=== PATIENT | male | born 2000 | race Caucasian/White ===

== ENCOUNTER 2024-07-14 16:06 | Inpatient (IN) | payer OTHER, BC, SELFPAY ==
[2024-07-14 12:11] VITALS: BP 129/76
[2024-07-14 14:45] VITALS: BP 131/82; BMI 24.3
--- NOTE | 2024-07-14 14:52 | EDRN ---
Kaden HOUGH currently at the pts bedside
[2024-07-14 15:13] LABS: % Basophils 0.2 % (0-2); % Eosinophils 1.2 % (0-6); % Immature Granulocytes 0.2 % (0-0.5); % Lymphocytes 20.6 % (20.5-51.1); % Monocytes 8.7 % (1.7-9.3); % Neutrophils 69.1 % (42.2-75.2); Absolute Eosinophils 0.1 10^3/uL (0-0.7); Absolute Lymphocytes 2.5 10^3/uL (1.2-3.4); Absolute Monocytes 1.1 10^3/uL (0.1-0.6); Absolute Neutrophils 8.3 10^3/uL (1.4-6.5); Hematocrit 48.6 % (39.0-52.0); Hemoglobin 16.9 g/dL (13.0-18.0); Mean Corp Hgb Conc. 34.8 g/dL (33.0-37.0); Mean Corpuscular Hgb 30.6 pg (27.0-31.0); Mean Corpuscular Volume 87.9 fL (80.0-94.0); Nucleated Red Blood Cells % 0 % (-); Platelet Count 265 10^3/uL (130-400); Red Blood Cell Count 5.53 10^6/uL (4.70-6.10); White Blood Cell Count 12.1 10^3/uL (4.8-10.8)
[2024-07-14 15:20] LABS: ALT (SGPT) 22 U/L (0-50); AST (SGOT) 25 U/L (17-59); Alkaline Phosphatase 104 U/L (38-126); Blood Urea Nitrogen 15 mg/dl (9-20); Calcium 9.4 mg/dl (8.4-10.2); Carbon Dioxide 29 mmol/L (22-30); Chloride 98 mmol/L (98-107); Estimated Creatinine Clearance 97 ml/min; Glucose 98 mg/dl (70-99); Potassium 4.5 mmol/L (3.5-5.1); Sodium 138 mmol/L (135-145); Total Bilirubin 0.6 mg/dl (0.2-1.3); Total Protein 8.4 g/dl (6.3-8.2); eGFR > 60.00
[2024-07-14] MEDS: TORADOL 15 MG IV (15:21)
[2024-07-14] MEDS: VANCOCIN 540 MG IV (15:23)
--- NOTE | 2024-07-14 15:30 | ED.GENMED ---
History of Present Illness
General
Chief Complaint: Skin Problem
Time Seen by Provider: 07/14/24 13:23
History of Present Illness
History of Present Illness:
23-year-old male presents to the emergency department for evaluation of swelling and pain several days. He notes that the symptoms began after trimming his nose hair. He was started on Augmentin and Bactrim 3 days ago by his primary care physician
but reports the symptoms are worsening. He does have occasional purulent discharge from the right nare. No fevers or chills. He does have pain to the dental region as well.
Review of Systems
Review of Systems
Allergies reviewed?: Yes
All Other Systems: ROS reviewed and negative except as documented in HPI and ROS
Phy Exam
Physical Exam
Physical Exam:
GEN: Well appearing, NAD, WDWN
HEENT: Oral mucosa moist, no scleral icterus. Severe erythema and swelling to the central nasal tip and right nasal malina, pustular lesion with active discharge to the inner right nasal malina. No crepitus, no erythema extending to the maxillary face
or philtrum
Cardiac: Regular rate
Lung: No respiratory distress, no tachypnea
MSK: No gross deformity or injuries
Skin: Good color, no pallor or jaundice, no rashes
Neuro: AO x3, moves all extremities freely
Psych: Calm, cooperative
Course
Orders/Labs/Results
Orders:
Orders
07/14/24 14:53
Complete Blood Count/With Diff Urgent
Comprehensive Metabolic Panel Urgent
Wound Culture [Wound/Abscess/Other Culture] Urgent
LUCÍA Source: Face
Specimen Description: Right
Date Specimen was Collected: 07/14/24
Time Specimen was Collected: 14:47
Comment: R nasal ala, internal
07/14/24 15:01
Ketorolac [Toradol] 15 mg IV NOW STA
07/14/24 15:06
Vancomycin [Vancocin] 2,000 mg 0.9% Sodium Chloride 500 ml [Nss] 500 ml IV NOW
07/14/24 15:54
Admit/Transfer Patient As Directed
Co-Sign Provider:
Level of Care: Inpatient admission
Assign to:: Medical/Surgical
Physician / Group: Scott
Diagnosis: Cellulitis
Reason for Hospitalization: IV abx
Expected length of stay greater than two midnights?: Yes
ELOS- Estimated Length of Stay in days: 3
I certify the patient meets the requirements for IP care: Yes
07/14/24 15:55
PRN Pain Medication Management As Directed
May give lesser potent ordered pain med per pt: Yes
preference::
Protocol:: Medication orders for pain may be administered in a
manner that supports deferring to patient preference
when the pt is:
- Requesting an ordered lesser potent pain medication.
Least to most potent pain medications are defined
as: acetaminophen < NSAID < tramadol < opioids
(morphine, oxycodone, hydromorphone).
- Requesting a lesser dose of the same medication IF
ORDERED.
- Requesting a less intrusive route of administration
if both routes are prescribed by the provider (PO <
IV).
07/14/24 15:57
Code Status As Directed
Resuscitation Status: Full Code
07/14/24 17:03
HYDROmorphone [Dilaudid] 0.25 mg IV Q3HPRN PRN
Abnormal Lab Results
07/14/24
14:53
WBC 12.1 H 10^3/uL
(4.8-10.8)
Absolute Neuts (auto) 8.3 H 10^3/uL
(1.4-6.5)
Absolute Monos (auto) 1.1 H 10^3/uL
(0.1-0.6)
Total Protein 8.4 H g/dl
(6.3-8.2)
07/14/24 14:53
07/14/24 14:53
Vital Signs
Initial and Last Documented VS:
Initial Vital Signs
Temp Pulse Resp BP Pulse Ox
98.4 F 62 18 129/76 100
07/14/24 12:11 07/14/24 12:11 07/14/24 12:11 07/14/24 12:11 07/14/24 12:11
Last Documented Vital Signs
Temp Pulse Resp BP Pulse Ox
97.6 F 86 20 115/72 99
07/14/24 18:23 07/14/24 18:23 07/14/24 18:23 07/14/24 18:23 07/14/24 18:23
MDM/Problems Addressed
MDM/Problems Addressed:
Due to failure of outpatient therapy the patient would be admitted for IV antibiotics, culture sent from the discharge in the right nasal malina
*Critical Care Note
Total Time (30-74mins, 75-104mins- exclusive of procedures): Not Applicable
ED Attending Note
-
Portions of this chart may have been created with voice recognition software.� Occasional wrong word or��sound alike� substitutions may have occurred due to the inherent limitations of voice recognition software.
Discharge Plan
Departure
Patient Disposition: Admit
Date of Disposition: 07/14/24
Time of Disposition: 15:32
Admit to: Med/Surg
Presentation/result/management discussed w/ accepting MD/DO: Hospitalist
Discharge Problem:
Nasal vestibulitis, Failure of outpatient treatment
Interventions
Interventions:
*Risk Screen - Suicide Last Done: 07/14/24 12:11
*General Assessment Last Done: 07/14/24 12:11
*Neglect/Abuse Screening Last Done: 07/14/24 14:45
ED- Fall Risk Assessment Last Done: 07/14/24 14:45
*ED COVID-19 Vaccine History Last Done: 07/14/24 14:45
ED-Skin Assessment Last Done: 07/14/24 14:45
--- NOTE | 2024-07-14 16:03 | HPS.HSE ---
Addendum entered and electronically signed by Radha Chavez DO 07/14/24 17:07:
The patient is seen and examined , and I have reviewed the patient with Mary HOUGH. I agree with her history and physical, assessment, and plan of care as per below.
In the interim after initiating IV Vanco in the ED, he had Vancomycin infusion reaction, became pruritic and erythematous per nursing. He has never had Vanco before.
VSS, AF
WBC 12.1
HEENT-erythematous swollen right nare, no purulence
#Nasal Cellulitis / Vestibulitis
#Vancomycin infusion reaction
-Infusion gtt was slowed down and we discussed with pharmacy and nursing changing rate of infusion
-Will continue IV Vanco at a slow rate and monitor for symptoms
-ENT consultation placed and appriated
-IV Benadryl in ED once
Original Note:
Family Physician
-
Family Physician: Wade Rincon
Chief Complaint
-
Worsening redness and swelling of nose
History of Present Illness
Patient is a 23-year-old male without significant past medical history who presents with increasing redness and swelling of the nose. Patient reports he uses an electric nose hair [place] occasionally. About a week ago he developed some swelling
and redness of the right nasal passage. He saw his primary care provider who started him on Augmentin and Bactrim on Sunday, 3 days ago. He notes despite being on the oral antibiotics the symptoms have worsened. He has noted some occasional
purulent discharge from the right nostril. He denies fevers but states he may have had some chills over the weekend.
Medical History
Past Medical History
Past Medical History: Reports None
Past Surgical History: Reports None
Social History
Tobacco: Non-smoker
Alcohol: None
Family History
Family History: Not pertinent
Allergies / Home Medications
Allergies reflects when Allergies were last updated in [facility].
Home Medications with original date entered in [facility]
Allergy/Medication List:
Allergies
Allergy/AdvReac Type Severity Reaction Status Date / Time
No Known Allergies Allergy Unverified 07/14/24 15:15
Home Medications
No Meds [No Current Medications] 07/14/24
Review of Systems
-
A 12 point ROS was completed and negative except as noted: Yes
Constitutional: Reports Chills; Denies Fever
Respiratory: Denies Cough or Trouble Breathing
Cardiac: Denies Chest Pain or Palpitations
Abdomen/GI: Denies Abdominal Pain, Nausea, Vomiting or Diarrhea
Physical Exam
Vital Signs
Vital Signs
Temp Pulse Resp BP Pulse Ox
98.9 F 82 20 131/82 99
07/14/24 14:45 07/14/24 14:45 07/14/24 14:45 07/14/24 14:45 07/14/24 14:45
Physical Exam
General: Comfortable and Conversant
HEENT: Anicteric, Moist mucous membranes and Other (Signifcant erythema and edema of external nose and right nasal passage)
Respiratory: Clear and Non Labored Respirations
Cardiac: S1/S2 and Regular Rhythm
GI: Soft and Non Tender
Rectal: Deferred by Provider
Musculoskeletal: No Clubbing, No Cyanosis and No Edema
Skin: Warm and Dry
Neuro: Awake, Alert, Oriented and Nonfocal/grossly intact
Psych: Calm
Laboratory Results
-
07/14/24 14:53
07/14/24 14:53
Laboratory Results
Total Bilirubin 0.6 mg/dl (0.2-1.3) 07/14/24 14:53
AST 25 U/L (17-59) 07/14/24 14:53
ALT 22 U/L (0-50) 07/14/24 14:53
Alkaline Phosphatase 104 U/L (38-126) 07/14/24 14:53
Data Reviewed
-
Lab Data: Labs Reviewed by me
Impression/Plan
-
Nasal Cellulitis / Vestibulitis
-Consult ENT
-Continue vancomycin
-Add warm compresses
-Add mupirocin nasal ointment
DVT proph: Lovenox
Code Status: Full Code
--- NOTE | 2024-07-14 16:19 | EDRN ---
this RN went to the pts bedside to check on the pt and this RN noticed that the pts forehead was reddened and the pt stated that he was itchy, this RN stopped the vancomycin infusion and notified the provider Kaden HOUGH
[2024-07-14] MEDS: BENADRYL 25 MG IV (16:21)
--- NOTE | 2024-07-14 16:26 | EDRN ---
Annemarie the pharmacist is currently at the pt bedside
--- NOTE | 2024-07-14 16:50 | EDRN ---
Vancomycin infusion restarted per pharmacist and Mary Tariq, infusion going to run over 4 hours, no c/o rash, no c/o itching, will continue to monitor the pt closely
--- NOTE | 2024-07-14 17:10 | EDRN ---
this RN approached the pts bedside to check on the pt and the pt still has no c/o itching, no s/s of rash or reaction, the pt has c/o nose pain, this RN notified the pt that there is dilaudid ordered for him and the pt stated, 'No i am fine i don't
need anything', will continue to monitor the pt closely
[2024-07-14 18:23] VITALS: BP 115/72
[2024-07-14] MEDS: BENADRYL 25 MG PO (19:44)
[2024-07-14 20:00] VITALS: BMI 28.2
[2024-07-14 20:01] VITALS: BP 138/82
--- NOTE | 2024-07-14 20:13 | PHA.VAN.IN ---
Assessment
- Assessment
Renal Function: Unknown baseline
Concomitant Antimicrobials: NONE
- Previous Dosing Experience
Previous Regimen: NONE
AUC Dosing Plan
- Dosing Variables
Dosing Weight (kg): 70.3
Dosing CrCl (ml/min): 97
Vd coefficient (L/kg): 0.7
- Empiric Dosing
Initial / Loading Dose: 2GM
Maintenance Regimen: 1GM IV Q12H - EXTEND INFUSION TIME DUE TO RED MAN'S SYNDROME
Estimated AUC (mcg*h/mL): 499
Estimated Peak (mcg*h/mL): 31.8
Estimated Trough (mcg/ml): 12.5
Estimated Half Life (H): 8.2
Pharmacokinetics Vancomycin I
- -
Patient Age: 23
Patient Sex: Male
Vancomycin Day #: 1
Indication: Eye Or Ent Infection
Requesting Provider: CAROL
Height / Weight:
Height 5 ft 11 in
Actual Weight 81.556 kg
Pertinent Past Medical History: FAILED OUTPT TX WITH AUGMENTIN/BACTRIM
- Vital Signs / Lab Results
Temp Pulse Resp BP Pulse Ox
98.9 F 72 18 138/82 97
07/14/24 20:01 07/14/24 20:01 07/14/24 20:01 07/14/24 20:01 07/14/24 20:01
Lab Results - Hematology
07/14/24
14:53
WBC 12.1 H
Lab Results - Chemistry
07/14/24
14:53
BUN 15
Creatinine 1.1
Estimated Creat Clear 97
Albumin 5.0
[2024-07-14] MEDS: NSS (PRESERVATIVE FREE) 8 ML IV (20:35)
[2024-07-14] MEDS: PEPCID 20 MG IV (20:36)
[2024-07-14] MEDS: BACTROBAN 2% OINTMENT 1 APPLIC NASAL (20:40)
[2024-07-14 23:57] VITALS: BP 135/81
[2024-07-15] MEDS: ZYRTEC 5 MG PO (00:58)
[2024-07-15] MEDS: VANCOCIN 200 IV ×2 (05:28→16:47)
[2024-07-15 07:30] LABS: Hematocrit 45.9 % (39.0-52.0); Hemoglobin 15.9 g/dL (13.0-18.0); Mean Corp Hgb Conc. 34.6 g/dL (33.0-37.0); Mean Corpuscular Hgb 30.8 pg (27.0-31.0); Mean Platelet Volume 10.6 fL (7.4-10.4); Platelet Count 268 10^3/uL (130-400); Red Blood Cell Count 5.16 10^6/uL (4.70-6.10); White Blood Cell Count 9.9 10^3/uL (4.8-10.8)
[2024-07-15 07:50] VITALS: BP 136/82
[2024-07-15 08:11] LABS: Blood Urea Nitrogen 17 mg/dl (9-20); Calcium 9.2 mg/dl (8.4-10.2); Carbon Dioxide 26 mmol/L (22-30); Chloride 98 mmol/L (98-107); Estimated Creatinine Clearance 110 ml/min; Glucose 97 mg/dl (70-99); Potassium 4.2 mmol/L (3.5-5.1); Sodium 137 mmol/L (135-145); eGFR > 60.00
[2024-07-15] MEDS: BACTROBAN 2% OINTMENT 1 APPLIC NASAL ×2 (09:10→20:33)
--- NOTE | 2024-07-15 10:23 | PHA.VAN.FU ---
Vancomycin Assessment / Plan
- Assessment
Renal Function: Stable
WBC's are: WNL
In the past 24 hrs, patient has been: Afebrile
- Dosing Plan
Continue: Vanc 1000mg Q12H infused over 90 minutes
- Monitoring Plan
No level(s) ordered at this time: consider levels in next few days
- Follow Up
Pharmacy will continue to follow.
Vancomycin Follow UP
- -
Patient Age: 23
Patient Sex: Male
Vancomycin Day #: 2
Indication: Eye Or Ent Infection
Requesting Provider: Vahid Morales
Pertinent Antimicrobial Allergies:
vancomycin - infusion reaction
Height / Weight:
Height 5 ft 11 in
Actual Weight 81.556 kg
Pertinent Past Medical History: BMI ~25
- Vital Signs / Lab Results
Temp Pulse Resp BP Pulse Ox
97.7 F 74 20 136/82 98
07/15/24 07:50 07/15/24 07:50 07/15/24 07:50 07/15/24 07:50 07/15/24 09:37
Lab Results - Hematology
07/14/24 07/15/24
14:53 06:41
WBC 12.1 H 9.9
Lab Results - Chemistry
07/14/24 07/15/24
14:53 06:41
BUN 15 17
Creatinine 1.1 1.1
Estimated Creat Clear 97 110
Albumin 5.0
Microbiology Results
07/14/24 14:53 Gram Stain - Preliminary
Face - Right
--- NOTE | 2024-07-15 11:52 | CM ---
Pt seen bedside. Initial assessment completed. Admitted for worsening redness and swelling of nose.
Pt reports he lives w/ family in a [facility]- 2 steps to enter. Pt is independent, no DME for ambulating or daily functioning
No SNF/VN/PT hx.
Pt denies any current OP or home services at this time
Address, point of contact and insurance verified
PCP: Dr. Rincon
Pharmacy: [facility]
Plan: Home; no needs
--- NOTE | 2024-07-15 12:42 | PTCARENOTE ---
Pt for transfer to room 430. Report called to Stepan JEFFREY. Pt ambulatory to [facility] with all belongings, no c/o at time of transfer.
[2024-07-15 15:54] VITALS: BP 128/75
--- NOTE | 2024-07-15 16:10 | W.PN.HOSP.TC ---
Today's Communication/Plan
-
Continue IV antibiotics for another 24 hours
Assessment / Plan
Assessment / Plan
Impression:
Nasal cellulitis/vestibulitis
MRSA colonization.
Vancomycin infusion reaction
Plan:
Afebrile with no systemic symptoms of infection.
Report no response to outpatient amoxicillin and Bactrim was taken for 2 days prior to presentation.
Continue IV vancomycin monitor for recurrent reaction
ENT consult pending
Initiated on mupirocin
Anticipated Discharge: 24 - 48 hours
Subjective/Interval History
-
Date of Service: July 15, 2024
Objective Data
-
Labs:
Laboratory Results
07/15/24
06:41
WBC 9.9
Hgb 15.9
Hct 45.9
Plt Count 268
Sodium 137
Potassium 4.2
Chloride 98
Carbon Dioxide 26
BUN 17
Creatinine 1.1
Glucose 97
Calcium 9.2
Vital Signs:
Vital Signs
Temp Pulse Resp BP Pulse Ox
98.0 F 68 18 128/75 98
07/15/24 15:54 07/15/24 15:54 07/15/24 15:54 07/15/24 15:54 07/15/24 15:54
I&O
07/14/24 07/15/24 07/16/24
06:59 06:59 06:59
Intake Total 680 / 680
Balance 680 / 680
Physical Exam
-
General: Well Developed and No Apparent Distress
HEENT: Normocephalic, Atraumatic, Moist Mucous Membranes and Other (Right nare with slight erythema and induration without fluctuance and purulence)
Respiratory: Clear to Auscultation
Cardiac: Regular Rhythm and S1/S2; Negative Murmur, Rub or Gallop
GI: Soft, Nontender, Nondistended and Normal Bowel Sounds; Negative Organomegaly
Rectal: Deferred by Provider
Musculoskeletal: No Clubbing, No Cyanosis and No Edema
Skin: Negative Rash
Neuro: Nonfocal/Grossly Intact
[2024-07-15 23:40] VITALS: BP 141/87
[2024-07-16] MEDS: VANCOCIN 200 IV ×2 (05:16→17:26)
[2024-07-16 07:00] VITALS: BP 132/77
[2024-07-16] MEDS: BACTROBAN 2% OINTMENT 1 APPLIC NASAL ×2 (07:24→20:47)
--- NOTE | 2024-07-16 08:19 | W.PN.UPDATE ---
Update Note
Progress Note Update
Pt feeling better
Nose c cellulitis
s/p I & D of nasal vestibule last PM
Still some purulence from I & D site
MRSA nasal cellulitis/ abscess
Drained
On Vanco
Continue frequent warm soaks
likely another 1 -2 days of IV therapy then could be sent home on po Bactrim
--- NOTE | 2024-07-16 08:31 | PHA.VAN.FU ---
Vancomycin Assessment / Plan
- Assessment
Renal Function: No New Labs Today
In the past 24 hrs, patient has been: Afebrile
- Dosing Plan
Continue: Vanc 1000mg Q12H
- Monitoring Plan
No level(s) ordered at this time: will hold off on levels for now given short IV course anticipated
- Follow Up
Pharmacy will continue to follow.
Vancomycin Follow UP
- -
Patient Age: 23
Patient Sex: Male
Vancomycin Day #: 3
Indication: Eye Or Ent Infection
Requesting Provider: Vahid Morales
Pertinent Antimicrobial Allergies:
vancomycin - infusion reaction
Height / Weight:
Height 5 ft 11 in
Actual Weight 81.556 kg
Pertinent Past Medical History: BMI ~25
- Vital Signs / Lab Results
Temp Pulse Resp BP Pulse Ox
98.5 F 81 18 141/87 95
07/15/24 23:40 07/15/24 23:40 07/15/24 23:40 07/15/24 23:40 07/15/24 23:40
Lab Results - Hematology
07/14/24 07/15/24
14:53 06:41
WBC 12.1 H 9.9
Lab Results - Chemistry
07/14/24 07/15/24
14:53 06:41
BUN 15 17
Creatinine 1.1 1.1
Estimated Creat Clear 97 110
Albumin 5.0
Microbiology Results
07/14/24 14:53 Wound Culture - Final
Face - Right Staph aureus MRSA
Gram Stain - Final
--- NOTE | 2024-07-16 09:41 | CM ---
Home with family when stable, no needs.
Plan; Home with family.
--- NOTE | 2024-07-16 14:42 | CON.ID ---
Consultation
-
Date/Time Consultation Requested: July 16, 2024 1303
Date/Time Consultation Performed: July 16, 2024 1440
Requesting Provider: Dr. Demarco Boo
Performing Provider: Dr. Jalyn Shah
Reason for Consultation: MRSA nasal cellulitis and abscess
Chief Complaint / Past History
Chief Complaint
Nose swelling
History of Present Illness
23-year-old male without past medical history who presented to the hospital July 14 due to nasal redness swelling and drainage. He reports last week he noted right side of his nose was uncomfortable. Developed redness and swelling. He then
started draining pus inside the nose. No fevers or chills. He went to urgent care and was prescribed Augmentin plus Bactrim for which she took about 2-1/2 days worth. However his nose continued to get worse and therefore he came to the ER. White
count was 12.1. Nasal drainage was sent for culture. He was started on vancomycin. Last evening ENT drained the nasal vestibule abscess. Culture resulted as MRSA. Today patient reports symptoms are getting better. He had MRSA when he was a
baby. No one else he knows of with MRSA. He thinks he may have developed the abscess from his electric nose hair [place].
Past History
Past Medical History: None
Additional Past Medical History:
Vancomycin
Past Surgical History: None
Allergy History:
vancomycin Adverse Reaction (Verified 07/14/24 16:28)
vancomycin infusion syndrome
Medications Reviewed: Yes
Social History
Tobacco: Non-Smoker
Alcohol: None
Employment: Employed (IT/software development)
Review of Systems
Review of Systems
General: Negative Fever, Chills or Change in Appetite
HEENT: Negative Headache or Pharyngitis
Respiratory: Negative Dyspnea or Cough
Gasteroenterology: Negative Nausea, Vomiting or Diarrhea
Genital / Urological: Negative Flank Pain
Endocrine: Negative Weakness
Neurological: Negative Dizziness
All systems: All other systems were reviewed and were negative
Vital Signs
Temp Pulse Resp BP Pulse Ox
98.1 F 73 18 132/77 98
07/16/24 07:00 07/16/24 07:00 07/16/24 07:00 07/16/24 07:00 07/16/24 07:00
Physical Exam
Physical Exam
Constitutional: No Acute Distress and Comfortable
Head: Other (Right side of nose + erythema/edema extending slightly to the left)
Eyes: No Conjunctival Hemorrhage and Sclera Anicteric
Cardiovascular: Regular Rate and S1/S2
Pulmonary: Clear
Gastrointestinal: Soft, Non Tender, Non Distended and Normal Bowel Sounds
Genito-Urinary: Negative CVA Tenderness
Extremities: Negative Edema
Neurological: AO x 3; Negative Meningeal Signs
Lab / Diagnostic Study Results
07/15/24 06:41
07/15/24 06:41
Abs Immat Gran (auto) 0.0 10^3/uL (0-0.05) 07/14/24 14:53
Absolute Neuts (auto) 8.3 10^3/uL (1.4-6.5) H 07/14/24 14:53
Absolute Lymphs (auto) 2.5 10^3/uL (1.2-3.4) 07/14/24 14:53
Absolute Monos (auto) 1.1 10^3/uL (0.1-0.6) H 07/14/24 14:53
Absolute Basos (auto) 0.0 10^3/uL (0-0.2) 07/14/24 14:53
Immature Gran % 0.2 % (0-0.5) 07/14/24 14:53
Neutrophils % 69.1 % (42.2-75.2) 07/14/24 14:53
Lymphocytes % 20.6 % (20.5-51.1) 07/14/24 14:53
Monocytes % 8.7 % (1.7-9.3) 07/14/24 14:53
Eosinophils % 1.2 % (0-6) 07/14/24 14:53
Basophils % 0.2 % (0-2) 07/14/24 14:53
Microbiology Results
Micro:
07/15/24 18:07 Anaerobic Culture - Preliminary
Nasal Sinus - Right Culture pending. Anaerobic cultures are examined after 3
days incubation. Additional information to follow.
07/14/24 14:53 Wound Culture - Final
Face - Right Staph aureus MRSA
Gram Stain - Final
Assessment / Plan
# MRSA right intranasal abscess
- s/p abscess drained by ENT
- Continue IV Vancomycin (d3).
- When ready for discharge, transition to doxycycline 100mg po bid through 07/23.
[2024-07-16 15:00] VITALS: BP 139/71
--- NOTE | 2024-07-16 15:05 | W.PN.HOSP.TC ---
Today's Communication/Plan
-
Continue vancomycin
ID consultation
Assessment / Plan
Assessment / Plan
Impression:
Nasal cellulitis/vestibulitis, abscess
MRSA colonization.
Vancomycin infusion reaction
Plan:
Afebrile with no systemic symptoms of infection.
Report no response to outpatient amoxicillin and Bactrim was taken for 2 days prior to presentation.
Status post I&D of nasal vestibular on 07/15
Continue IV vancomycin monitor for recurrent reaction
Initiated on mupirocin
Anticipated Discharge: 24 - 48 hours
Subjective/Interval History
-
Date of Service: July 16, 2024
Objective Data
-
Vital Signs:
Vital Signs
Temp Pulse Resp BP Pulse Ox
98.1 F 73 18 132/77 98
07/16/24 07:00 07/16/24 07:00 07/16/24 07:00 07/16/24 07:00 07/16/24 07:00
I&O
07/15/24 07/16/24 07/17/24
06:59 06:59 06:59
Intake Total 680 / 680 2119
Balance 680 / 680 2119
Physical Exam
-
General: Well Developed and No Apparent Distress
HEENT: Normocephalic, Atraumatic, Moist Mucous Membranes and Other (Right nare with slight erythema and induration without fluctuance and purulence)
Respiratory: Clear to Auscultation
Cardiac: Regular Rhythm and S1/S2; Negative Murmur, Rub or Gallop
GI: Soft, Nontender, Nondistended and Normal Bowel Sounds; Negative Organomegaly
Rectal: Deferred by Provider
Musculoskeletal: No Clubbing, No Cyanosis and No Edema
Skin: Negative Rash
Neuro: Nonfocal/Grossly Intact
[2024-07-16 23:30] VITALS: BP 129/70
[2024-07-17] MEDS: VANCOCIN 200 IV (05:27)
[2024-07-17 08:16] VITALS: BP 121/76
[2024-07-17] MEDS: BACTROBAN 2% OINTMENT 1 APPLIC NASAL (09:32)
--- NOTE | 2024-07-17 10:23 | W.PN.ID1 ---
Date of Service
Date of Service: July 17, 2024
Today's Communication
- Continue IV Vancomycin (d4).
- When ready for discharge, transition to doxycycline 100mg po bid through 07/23.
Assessment / Plan
# MRSA right intranasal abscess
- s/p abscess drained by ENT
- Continue IV Vancomycin (d4).
- When ready for discharge, transition to doxycycline 100mg po bid through 07/23.
Chief Complaint
-: Cellulitis
Subjective / Review of Systems
Nose continues to have less pain
Vital Signs / Physical Exam
Vital Signs
Vital Signs
Temp Pulse Resp BP Pulse Ox
97.6 F 71 18 121/76 98
07/17/24 08:16 07/17/24 08:16 07/17/24 08:16 07/17/24 08:16 07/17/24 08:16
Physical Exam
Constitutional: No Acute Distress and Comfortable
Head: Other (Nose: decreased erythema/induration)
Eyes: Sclera Anicteric
Cardiovascular: Regular Rate and S1/S2
Pulmonary: Clear
Gastrointestinal: Soft, Non Tender and Non Distended
Genito-Urinary: Negative CVA Tenderness
Extremities: Negative Edema
Neurological: AO x 3
Objective Data
Lab Data
Lab Results
07/15/24 06:41
07/15/24 06:41
Estimated Creat Clear 110 ml/min 07/15/24 06:41
Total Bilirubin 0.6 mg/dl (0.2-1.3) 07/14/24 14:53
AST 25 U/L (17-59) 07/14/24 14:53
ALT 22 U/L (0-50) 07/14/24 14:53
Alkaline Phosphatase 104 U/L (38-126) 07/14/24 14:53
Most recent labs reviewed.
Micro Results:
07/15/24 18:07 Anaerobic Culture - Preliminary
Nasal Sinus - Right Culture pending. Anaerobic cultures are examined after 3
days incubation. Additional information to follow.
07/14/24 14:53 Wound Culture - Final
Face - Right Staph aureus MRSA
Gram Stain - Final
--- NOTE | 2024-07-17 12:31 | W.DS.TRANS ---
DC Summary - Salesforce Developer
-
Discharge Instructions:
Discharge Diagnosis/Procedures Nasal cellulitis/vestibulitis, abscess
Diet Regular
Instructions:
Stand-Alone Forms:
Changes to Home Medications: Yes
Discharge Medications:
DC Medications w/original date entered in [facility]
doxycycline monohydrate 100 mg capsule 100 mg PO BID #14 caps 07/17/24
mupirocin 2 % topical ointment 1 applic intranasal BID #22 grams 07/17/24
Home Medication Changes
all of above
Pending Results: No
--- NOTE | 2024-07-17 12:53 | CM ---
CM reviewed chart, patient seen bedside, reports no needs. Patient confirms he has transportation home. CM will continue to follow for all discharge planning needs.
Plan; home no needs.
[2024-07-17 13:31] VITALS: BP 154/78
== END 2024-07-17 14:15 | disposition home or self-care (01) | DRG 156 ==
LOC: 4 WEST ACU 16:06
PROVIDERS: Physician Assistant; Physician Assistant Medical; ADMITTING PHYSICIAN Internal Medicine; ATTENDING PHYSICIAN Internal Medicine; EMERGENCY PHYSICIAN Emergency Medicine; FAMILY PHYSICIAN Family Medicine; OTHER PHYSICIAN Internal Medicine Infectious Disease; OTHER PHYSICIAN Otolaryngology
PROC: 099KXZZ Drainage of Nasal Mucosa and Soft Tissue, External Approach (ICD-10-PCS; 2024-07-15)
DX: J34.89 Other specified disorders of nose and nasal sinuses (principal); J34.0 Abscess, furuncle and carbuncle of nose; H83.09 Labyrinthitis, unspecified ear; J32.9 Chronic sinusitis, unspecified
CPT/HCPCS: 80048; 80053; 85025; 85027; 87070; 87075; 87147; 87186; 87205; 96365; 96366; 96375; 99285